=== PATIENT | female | born 1985 | race Two or more races ===

== ENCOUNTER 2017-10-13 09:47 | Outpatient (CLI) | payer MEDICAID | END 2017-10-13 23:59 | disposition home or self-care (01) | LOC: RAD 09:47 | PROVIDERS: ATTEND Physician Assistant Medical | DX: N83.292 Other ovarian cyst, left side (principal); Q74.2 Other congenital malformations of lower limb(s), including pelvic girdle | CPT/HCPCS: 76830 ==